=== PATIENT | female | born 1995 | race Caucasian/White ===

== ENCOUNTER 2017-08-02 17:21 | Emergency (ER) | payer OTHER ==
[~2017-08-02] VITALS: Ht 180.3 cm; Wt 74.3 kg
[~2017-08-02 17:21] MED LIST: BCPILLS PO
[2017-08-02 17:26] VITALS: TEMP 36.5; Ht 180.3 cm; Wt 74.3 kg
[2017-08-02] MEDS ORDERED: SODIUM CHLORIDE 0.9% 1000ML 1,000 ML IV STA (18:10)
--- NOTE | 2017-08-02 18:16 | EMERGENCY ROOM VISIT NOTE ---
History Report prepared by Jose Antonio: Nuno Seymour Under the Supervision of: Dr. Sanjiv Rose M.D. First contact with patient: 18:01 Chief Complaint: NEURO SYMPTOMS Stated Complaint: VISION PROBLEMS, HEADACHES,DIZZY History of Present Illness The patient is a 22 year old female who presents to the Emergency Room with complaints of constant neurologic symptoms following running on the treadmill this morning at 0900. The patient states that she was doing cardio this morning , when she began to see "black splotches" on the sides of her vision in her right eye. She notes that the splotches then appeared to move around throughout her field of vision. She reports that she immediately stopped running and became dizzy and nauseous. The patient states that she went home and her vision got better, but notes that her right eye feels sore. She notes that she still went to class today, but felt dizzy and nauseous throughout the day. She reports that she also had some difficulty speaking for one sentence. The patient states that she took a nap for two hours, and woke up with a headache on both sides of her head. She also complains of previous congestion and a runny nose. She denies any CP, fever, chills, SOB, abdominal pain, arm pain, rapid heart rate, regular difficulty speaking and swallowing, neck pain, trauma , and illness. She also denies any chance of . She notes that she has not had similar symptoms before. She reports that she takes control and albuterol for her asthma when needed. Source of History: patient Onset: this morning at 0900 Position: head Quality: other (neurologic symptoms) Timing: constant Associated Symptoms: + headache, + nausea, No fevers, No chills, No neck pain, No chest pain, No SOB, No abdominal pain Note: She complains of "black splotches in her right eye," dizziness, eye soreness, difficulty speaking, congestion, and runny nose. She denies any arm pain, rapid heart rate, regular difficulty speaking and swallowing, trauma, and illness. Review of Systems See HPI for pertinent positives & negatives. A total of 10 systems reviewed and were otherwise negative. Past Medical & Surgical Medical Problems: (1) Asthma Old medical records were attempted to be reviewed but there are no old records at this hospital. Nurse's notes were reviewed and I agree with. Family History No pertinent family history Social History Smoking Status: Never Smoker Alcohol Use: occasionally Marital Status: single Occupation Status: [employer] student Current/Historical Medications Scheduled Control Pills ( Control Pills), 1 TAB PO DAILY Scheduled PRN Albuterol Hfa (Ventolin Hfa), 2 PUFFS INH Q6H PRN for Shortness of Breath Allergies Coded Allergies: No Known Allergies (Unverified , 08/02/17) Physical Exam Vital Signs Date Time Temp Pulse Resp B/P (MAP) Pulse Ox O2 Delivery O2 Flow Rate FiO2 08/02/17 22:54 71 16 102/61 98 08/02/17 21:54 71 16 102/55 98 Room Air 08/02/17 20:46 74 16 104/75 98 Room Air 08/02/17 19:44 67 16 100/67 100 Room Air 08/02/17 18:48 68 15 103/65 100 Room Air 08/02/17 17:26 36.5 88 16 126/84 96 Room Air Physical Exam General: Non-ill appearing young female in no acute distress. HEENT: Normal cephalic atraumatic. Pupils are equal round and reactive to light. Extraocular movements are intact. Oropharynx is pink with moist mucous membranes. No swelling of the mouth lips or tongue. Neck: Supple with a midline trachea. No meningeal signs or stiffness, no JVD or bruits. No Stridor. Chest: Clear to auscultation bilaterally. No wheezes or rhonchi. No increased work of breathing. Heart: regular rate and rhythm. Abdomen: Soft nontender, nondistended without rebound guarding or rigidity. Extremities: No cyanosis clubbing or edema. No calf tenderness or assymetry Spine/Back. Non tender to palpation. No CVA tenderness Skin: Good turgor without rashes. Neurologic exam: Cranial nerves two through 12 are intact. Motor and sensation are intact and symmetrical throughout. No tremor, finger to nose intact. Medical Decision & Procedures ER Provider Diagnostic Interpretation: Radiology results as stated below per my review and radiologist interpretation: ANGIOGRAPHY HEAD COMBO, NECK ANGIO WITH CONTRAST CLINICAL HISTORY: 22 years-old Female presents with acute headache and right-sided visual changes COMPARISON STUDY: None available TECHNIQUE: Unenhanced axial CT scan of the brain is performed. Subsequently, following the IV administration of 115 cc of Optiray 320, CT angiogram of the head and neck was performed. Images are reviewed in the axial, sagittal, and coronal planes. 3-D MIPS images are created and assessed. IV contrast was administered without complication. A dose lowering technique was utilized adhering to the principles of ALARA. CT DOSE: 982.57 mGy.cm FINDINGS: CT BRAIN: There is no acute intracranial hemorrhage, midline shift, hydrocephalus, intracranial mass, territorial ischemia or abnormal extra-axial collections. No abnormal intra-axial or extra-axial enhancement. Mastoid air cells and middle ear cavities are clear. Partially imaged severe mucosal thickening of the right maxillary and right ethmoid air cells. Mild mucosal thickening of the inferior right frontal sinuses. CT ANGIOGRAM OF THE HEAD AND NECK: The imaged bilateral common and internal carotid arteries are patent. The bilateral anterior and middle cerebral arteries are also patent. The vertebrobasilar system and posterior cerebral arteries are widely patent. The left vertebral artery is dominant. There is no aneurysm, high-grade stenosis, or proximal branch occlusion identified. Dural sinuses appear patent. Lung apices are clear. No pneumothorax. Thyroid is homogeneous. No pathologic adenopathy or focal soft tissue abnormality of the neck. Imaged cervical spine appears intact. IMPRESSION: 1. No acute intracranial abnormality. 2. Unremarkable CTA of the head and neck without aneurysm, high-grade stenosis or proximal branch occlusion. The above report was generated using voice recognition software. It may contain grammatical, syntax or spelling errors. Electronically signed by: Nate Bowie M.D. 08/02/2017 8:03 PM BRAIN COMBO HISTORY: 22 years-old Female eval for intracranial process acute dizziness with nausea and frontal headache COMPARISON: CTA had neck of same day TECHNIQUE: Multiplanar multisequence MRI of the brain was obtained both with and without the use of 7.4 mg Gadavist. FINDINGS: There is no restricted diffusion to suggest acute infarction. All midline structures including the corpus callosum, brainstem, optic chiasm, infundibulum, pituitary and pineal glands are unremarkable the sagittal T1 series. No cerebellar tonsillar herniation. The imaged cervical spine appears unremarkable. Moderate adenoid tonsillar hyperplasia. No acute intracranial hemorrhage, midline shift, abnormal extra-axial collections or hydrocephalus. Punctate focus of increased FLAIR signal of the subcortical right frontal lobe, image 6 series 6 is likely of no clinical significance. The major flow voids at the level of the skull base are patent. Severe complete opacification of the right maxillary sinus with moderate inferior right frontal and right ethmoid sinus disease. Mastoid air cells are clear. The skull, soft tissues and orbits are unremarkable. There is no abnormal intra-axial or extra-axial enhancement identified. IMPRESSION: 1. No acute intracranial abnormality identified. No abnormal enhancement. 2. Paranasal sinus disease as above. The above report was generated using voice recognition software. It may contain grammatical, syntax or spelling errors. Electronically signed by: Nate Bowie M.D. 08/02/2017 10:00 PM Laboratory Results 08/02/17 18:20 Red Blood Count 4.90, Mean Corpuscular Volume 85.9, Mean Corpuscular Hemoglobin 30.2, Mean Corpuscular Hemoglobin Concent 35.2, Mean Platelet Volume 10.6, Neutrophils (%) (Auto) 49.6, Lymphocytes (%) (Auto) 36.3, Monocytes (%) (Auto) 13.5, Eosinophils (%) (Auto) 0.4, Basophils (%) (Auto) 0.2, Neutrophils # (Auto ) 2.57, Lymphocytes # (Auto) 1.88, Monocytes # (Auto) 0.70, Eosinophils # (Auto ) 0.02, Basophils # (Auto) 0.01 08/02/17 18:20 Test 08/02/17 18:20 08/02/17 18:30 08/02/17 18:31 White Blood Count 5.18 K/uL (4.8-10.8) Red Blood Count 4.90 M/uL (4.2-5.4) Hemoglobin 14.8 g/dL (12.0-16.0) Hematocrit 42.1 % (37-47) Mean Corpuscular Volume 85.9 fL (80-100) Mean Corpuscular Hemoglobin 30.2 pg (25-34) Mean Corpuscular Hemoglobin Concent 35.2 g/dl (32-36) Platelet Count 246 K/uL (130-400) Mean Platelet Volume 10.6 fL (7.4-10.4) Neutrophils (%) (Auto) 49.6 % Lymphocytes (%) (Auto) 36.3 % Monocytes (%) (Auto) 13.5 % Eosinophils (%) (Auto) 0.4 % Basophils (%) (Auto) 0.2 % Neutrophils # (Auto) 2.57 K/uL (1.4-6.5) Lymphocytes # (Auto) 1.88 K/uL (1.2-3.4) Monocytes # (Auto) 0.70 K/uL (0.11-0.59) Eosinophils # (Auto) 0.02 K/uL (0-0.5) Basophils # (Auto) 0.01 K/uL (0-0.2) RDW Standard Deviation 42.0 fL (36.4-46.3) RDW Coefficient of Variation 13.3 % (11.5-14.5) Immature Granulocyte % (Auto) 0.0 % Immature Granulocyte # (Auto) 0.00 K/uL (0.00-0.02) Prothrombin Time 9.8 SECONDS (9.0-12.0) Prothromb Time International Ratio 0.9 (0.9-1.1) Activated Partial Thromboplast Time 30.3 SECONDS (21.0-31.0) Partial Thromboplastin Ratio 1.2 Est Creatinine Clear Calc Drug Dose 124.3 ml/min Estimated GFR () 122.2 Estimated GFR (Non- 105.4 BUN/Creatinine Ratio 14.1 (10-20) Calcium Level 8.9 mg/dl (8.5-10.1) Total Bilirubin 0.3 mg/dl (0.2-1) Direct Bilirubin 0.1 mg/dl (0-0.2) Aspartate Amino Transf (AST/SGOT) 23 U/L (15-37) Alanine Aminotransferase (ALT/SGPT) 30 U/L (12-78) Alkaline Phosphatase 95 U/L (45-117) Total Protein 7.8 gm/dl (6.4-8.2) Albumin 3.7 gm/dl (3.4-5.0) Lipase 77 U/L (73-393) Thyroid Stimulating Hormone (TSH) 1.190 uIu/ml (0.300-4.500) Bedside Troponin I < 0.030 ng/ml (0-0.045) Bedside Hemoglobin 14.3 g/dl (12.0-16.0) Bedside Hematocrit 42 % (37-47) Bedside Sodium 140 mEq/L (135-144) Bedside Potassium 3.8 mEq/L (3.3-5.0) Bedside Chloride 100 mEq/L (101-112) Bedside Total CO2 26 mEq/l (24-31) Anion Gap 18.0 mmol/L (16-25) Bedside Blood Urea Nitrogen 11 mg/dl (7-18) Bedside Creatinine 0.8 mg/dl (0.6-1.3) Bedside Glucose (other) 89 mg/dl (70-99) Bedside Ionized Calcium (Flex) 1.19 mmol/l (1.12-1.32) Laboratory studies as stated above per my review. Medications Administered Medications (Trade) Dose Ordered Sig/Yumiko Route Start Time Stop Time Status Last Admin Dose Admin Sodium Chloride 1,000 ml @ 999 mls/hr Q1H1M STAT IV 08/02/17 18:10 08/02/17 19:10 DC 08/02/17 18:46 999 MLS/HR ECG Indication: other (dizziness) Rate (beats per minute): 71 Rhythm: other (normal sinus with sinus arrhythmia) Findings: no acute ischemic change, other (Low voltage) Comparison ECG Date: 07/21/2014 Change: no significant change Change: Patient's electrocardiogram was interpreted by me. ED Course 1801: Past medical records reviewed. The patient was evaluated in room B5, and a complete history and physical examination were performed. 0: Sodium Chloride 1000 ml @ 999 mls/hr IV 1824: I reevaluated and updated the patient. She is resting comfortably. They have an IV started. 1853: I rechecked the patient. She if resting comfortably. We are waiting for her creatinine. 2009: I reevaluated the patient. She is doing well and waiting for CT. 2016: I ordered an MRI. 2244: I rechecked the patient. She is asymptomatic. 2304: Upon reevaluation, the patient is stable. I discussed the results and treatment plan with her. She verbalized agreement of the treatment plan. The patient was discharged home. Medical Decision Differential diagnoses include: migraine, TIA, MS, aneurysm, tension headache, and electrolyte/metabolic abnormality. This patient comes in as described above. She had an episode this morning where she had visual changes in her right eye and briefly after that had trouble finding words in one sentence only. She has a mild headache now. She looks well on exam her vision has gotten better. She is not ill-appearing and has a normal neurologic exam. EKG was obtained which shows normal sinus rhythm without ischemic changes. IV access established and blood work was obtained. I did a CAT scan with a CTA of her head as well as neck. She was reassessed frequently. Her blood work was unremarkable. CAT scan with CT of the head and neck were negative. There is no evidence of vascular problem aneurysm or intracranial process. I also did an MRI with and without of the brain and it was negative with exception of some sinus disease. The patient looks great. She is asymptomatic. I think most likely this was a migraine. Her visual acuity is normal now and she has no symptoms. I do not think this is likely aneurysm or other acute intracranial process or TIA. She feels good and would like to go home with think is reasonable with close follow-up with her regular doctor. She should return to ER for worsening symptoms, numbness or weaknes, any problems concerns. She is happy the plan and discharged to home. Head Trauma GCS Score: 15 Medication Reconcilliation Current Medication List: was personally reviewed by me Blood Pressure Screening Patient's blood pressure: Normal blood pressure Blood pressure disposition: Did not require urgent referral Impression Primary Impression: Vision changes Additional Impressions: Headache Migraine Scribe Attestation The scribe's documentation has been prepared under my direction and personally reviewed by me in its entirety. I confirm that the note above accurately reflects all work, treatment, procedures, and medical decision making performed by me. Departure Information Dispostion Home / Self-Care Referrals [facility] (PCP) Forms HOME CARE DOCUMENTATION FORM, IMPORTANT VISIT INFORMATION, WORK / SCHOOL INSTRUCTIONS Patient Instructions My [facility] Additional Instructions Rest. Drink plenty of fluids. Return if: Recurrence of symptoms, numbness weakness, fever chills, any new problems or concerns Follow-up with your doctor this week for recheck Problem Qualifiers
[2017-08-02] MEDS ORDERED: OPTIRAY 320 IV PRN (18:30)
[2017-08-02 18:34] LABS: BASO % 0.2 %; BASO ABS # 0.01 K/uL (0-0.2); EOS % 0.4 %; EOS ABS # 0.02 K/uL (0-0.5); HEMATOCRIT 42.1 % (37-47); HEMOGLOBIN 14.8 g/dL (12.0-16.0); LYMPH % 36.3 %; LYMPH ABS # 1.88 K/uL (1.2-3.4); MEAN CELL VOLUME 85.9 fL (80-100); MEAN CORPUSCULAR HEMOGLOBIN 30.2 pg (25-34); MEAN CORPUSCULAR HGB CONC 35.2 g/dl (32-36); MEAN PLATELET VOLUME 10.6 fL (7.4-10.4); MONO % 13.5 %; NEUT % 49.6 %; NEUT ABS # 2.57 K/uL (1.4-6.5); PLATELET COUNT 246 K/uL (130-400); RED CELL DISTRIBUTION WIDTH CV 13.3 % (11.5-14.5); WHITE BLOOD COUNT 5.18 K/uL (4.8-10.8)
[2017-08-02 18:43] LABS: INR 0.9 (0.9-1.1); PTT PATIENT 30.3 SECONDS (21.0-31.0)
[2017-08-02 18:53] LABS: ALBUMIN 3.7 gm/dl (3.4-5.0); CALCIUM 8.9 mg/dl (8.5-10.1); CREATININE 0.8 mg/dl (0.60-1.20); POTASSIUM 3.8 mmol/L (3.5-5.1)
[2017-08-02 19:04] LABS: ISTAT CREATININE 0.8 mg/dl (0.6-1.3); ISTAT IONIZED CALCIUM 1.19 mmol/l (1.12-1.32); ISTAT POTASSIUM 3.8 mEq/L (3.3-5.0)
[2017-08-02 19:05] LABS: TOTAL PROTEIN 7.8 gm/dl (6.4-8.2)
[2017-08-02] MEDS ORDERED: VNTHFA/IN INH (19:55)
--- NOTE | 2017-08-02 20:04 | DIAGNOSTIC IMAGING REPORT ---
ANGIOGRAPHY HEAD COMBO, NECK ANGIO WITH CONTRAST CLINICAL HISTORY: 22 years-old Female presents with acute headache and right-sided visual changes COMPARISON STUDY: None available TECHNIQUE: Unenhanced axial CT scan of the brain is performed. Subsequently, following the IV administration of 115 cc of Optiray 320, CT angiogram of the head and neck was performed. Images are reviewed in the axial, sagittal, and coronal planes. 3-D MIPS images are created and assessed. IV contrast was administered without complication. A dose lowering technique was utilized adhering to the principles of ALARA. CT DOSE: 982.57 mGy.cm FINDINGS: CT BRAIN: There is no acute intracranial hemorrhage, midline shift, hydrocephalus, intracranial mass, territorial ischemia or abnormal extra-axial collections. No abnormal intra-axial or extra-axial enhancement. Mastoid air cells and middle ear cavities are clear. Partially imaged severe mucosal thickening of the right maxillary and right ethmoid air cells. Mild mucosal thickening of the inferior right frontal sinuses. CT ANGIOGRAM OF THE HEAD AND NECK: The imaged bilateral common and internal carotid arteries are patent. The bilateral anterior and middle cerebral arteries are also patent. The vertebrobasilar system and posterior cerebral arteries are widely patent. The left vertebral artery is dominant. There is no aneurysm, high-grade stenosis, or proximal branch occlusion identified. Dural sinuses appear patent. Lung apices are clear. No pneumothorax. Thyroid is homogeneous. No pathologic adenopathy or focal soft tissue abnormality of the neck. Imaged cervical spine appears intact. IMPRESSION: 1. No acute intracranial abnormality. 2. Unremarkable CTA of the head and neck without aneurysm, high-grade stenosis or proximal branch occlusion. The above report was generated using voice recognition software. It may contain grammatical, syntax or spelling errors. Electronically signed by: Nate Bowie M.D. 08/02/2017 8:03 PM Dictated Date/Time: 08/02/2017 7:54 PM
[2017-08-02] MEDS ORDERED: GADAVIST IV PRN (21:20)
--- NOTE | 2017-08-02 22:01 | DIAGNOSTIC IMAGING REPORT ---
BRAIN COMBO HISTORY: 22 years-old Female eval for intracranial process acute dizziness with nausea and frontal headache COMPARISON: CTA had neck of same day TECHNIQUE: Multiplanar multisequence MRI of the brain was obtained both with and without the use of 7.4 mg Gadavist. FINDINGS: There is no restricted diffusion to suggest acute infarction. All midline structures including the corpus callosum, brainstem, optic chiasm, infundibulum, pituitary and pineal glands are unremarkable the sagittal T1 series. No cerebellar tonsillar herniation. The imaged cervical spine appears unremarkable. Moderate adenoid tonsillar hyperplasia. No acute intracranial hemorrhage, midline shift, abnormal extra-axial collections or hydrocephalus. Punctate focus of increased FLAIR signal of the subcortical right frontal lobe, image 6 series 6 is likely of no clinical significance. The major flow voids at the level of the skull base are patent. Severe complete opacification of the right maxillary sinus with moderate inferior right frontal and right ethmoid sinus disease. Mastoid air cells are clear. The skull, soft tissues and orbits are unremarkable. There is no abnormal intra-axial or extra-axial enhancement identified. IMPRESSION: 1. No acute intracranial abnormality identified. No abnormal enhancement. 2. Paranasal sinus disease as above. The above report was generated using voice recognition software. It may contain grammatical, syntax or spelling errors. Electronically signed by: Nate Bowie M.D. 08/02/2017 10:00 PM Dictated Date/Time: 08/02/2017 9:55 PM
[2017-08-02 22:54] VITALS: BP 102/61; PULSE 71; O2SAT 98
== END 2017-08-02 22:53 | disposition home or self-care (01) ==
LOC: C.EDB 17:24
DX: H53.9 Unspecified visual disturbance (principal); G43.909 Migraine, unspecified, not intractable, without status migrainosus; Z79.3 Long term (current) use of hormonal contraceptives; J45.909 Unspecified asthma, uncomplicated